=== PATIENT | female | born 1960 ===

== ENCOUNTER → 2024-09-26 | Outpatient (CLI) | payer BC, SELFPAY ==
--- NOTE | 2024-09-26 10:46 | XR_ITS ---
Examination: PA lateral chest 2 views TECHNIQUE: Upright PA lateral chest 2 views Exam date and time: September 26, 2024 1103 hours Comparison September 20, 2005 INDICATIONS: Pneumonia history diagnosis one month ago. FINDINGS: Stable 18 mm nodule left upper lobe Pneumonia right base with loculated appearing pleural disease Normal heart size IMPRESSION: Pneumonia right lower lung zone with loculated pleural disease Follow-up films are needed to document clearing and exclude underlying pulmonary mass
== END | disposition home or self-care (01) ==
LOC: CDIM 10:34
PROVIDERS: PCP Family Medicine; Referring Provider Family Medicine; Visit Provider Family Medicine
DX: J18.9 Pneumonia, unspecified organism (principal)
CPT/HCPCS: 71046

== ENCOUNTER → 2024-10-08 | Outpatient (CLI) | payer BC, SELFPAY ==
--- NOTE | 2024-10-08 09:00 | XR_ITS ---
Examination: PA lateral chest 2 views TECHNIQUE: Upright PA lateral chest 2 views Exam date and time: October 08, 2024 0922 hours Comparison September 26, 2024 INDICATIONS: Pneumonia 6 weeks. FINDINGS: Stable pleural parenchymal disease in the right hemithorax Stable calcified granuloma left upper lobe No interval pulmonary edema Moderate osteopenia IMPRESSION: Stable pleural parenchymal disease in the right hemithorax, which may represent scarring at this point, clinical correlation advised
== END | disposition home or self-care (01) ==
PROVIDERS: PCP Family Medicine; Referring Provider Family Medicine; Visit Provider Family Medicine
DX: R91.8 Other nonspecific abnormal finding of lung field (principal)
CPT/HCPCS: 71046

== ENCOUNTER → 2024-10-29 | Outpatient (CLI) | payer BC, SELFPAY ==
--- NOTE | 2024-10-29 11:45 | XR_ITS ---
Examination: PA lateral chest 2 views TECHNIQUE: Upright PA lateral chest 2 views Exam date and time: October 29, 2024 1312 hours Comparison April 092024 INDICATIONS: Coughing congestion 2 months. 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
== END | disposition home or self-care (01) ==
PROVIDERS: PCP Family Medicine; Referring Provider Family Medicine; Visit Provider Family Medicine
DX: R91.8 Other nonspecific abnormal finding of lung field (principal)
CPT/HCPCS: 71046